=== PATIENT | female | born 1960 | race Caucasian/White ===

== ENCOUNTER → 2016-09-28 | Outpatient (CLI) | payer BC, MEDICARE ==
[~2016-09-28] MED LIST: ABILIFY PO; ACETAMINOPHEN PO; AMBIEN PO; AMITRYPTYLINE PO; ANEXSIA 5/325 M1 TA1 PO; ATENOLOL50 MG PO; BIRTH CONTROL PILL PO; BUTALB-APAP-CA1 EACH PO; CYMBALTA PO; DARVOCET-N 1001 TAB PO; DICYCLOMINE HCL20 MG PO; FIORINAL 50-321 EACH PO; FLEXERIL10 MG PO; GABAPENTIN300 M2 PO; HYDROCODON-ACE1 EAC7 PO; KETOPROFEN PO; LINZESS290 MCG PO; MEDROL PO; MOBIC PO; NORCO 5/325 TAB1 TAB PO; PHENERGAN25 MG PO; SAVELLA50 MG PO; ZOLOFT100 MG PO
[2016-10-01 10:53] LABS: CALCIUM (PTHINTACT) 9.4 mg/dL (8.6-10.4)
== END | disposition home or self-care (01) ==
LOC: CLAB 15:44
PROVIDERS: Otolaryngology
DX: E83.42 Hypomagnesemia (principal)
CPT/HCPCS: 36415; 82310; 82330; 83970

== ENCOUNTER → 2017-02-03 | Outpatient (CLI) | payer BC, MEDICARE ==
--- NOTE | ~2017-02-03 | NM19 ---
[facility] A Service [facility] RADIOLOGY TEXT RESULTS PATIENT: SURY ROSENTHAL LOCATION: [facility] : 64 UNIT #: [id number] AGE: [address]: Pascual Neri MD SEX: F ORDER DR: [id number] [place], [place] [address] [id number] O MR#: [id number] Acc #: [id number] NAME: SURY ROSENTHAL : 1960 SEX: F STUDY DATE/TIME: 02/03/2017 10:48 UNIT: [facility] ROOM: STUDY DESCRIPTION: NM Gastric Emptying Study Attending Physician: Pascual Neri M.D. Referring Physician: Pascual Neri M.D. Ordering Physician: Pascual Neri M.D. Primary Care Physician: Osiel Mclean M.D. MEDICAL IMAGING REPORT This report is preliminary unless electronic signature is present EXAM Gastric emptying scan, 02/03/2017 HISTORY Epigastric abdominal pain nausea vomiting for 5 months. History of gastric ulcer and gastric bypass surgery. TECHNIQUE The patient ingested 508 microcuries of Tc-99m tagged sulfur colloid in eggs. Images of the upper abdomen were obtained for 4 hours. FINDINGS After 1 hour, the stomach was 21% empty and after 2 hours, the stomach was 71% empty and after 4 hours, the stomach was 91% empty. Normal range is greater than 60% empty after 2 hours of imaging and greater than 90% empty after 4 hours of imaging. IMPRESSION Normal gastric emptying after 2 and 4 hours of imaging. Dictated by... Med Pittman M.D. THIS IS AN ELECTRONICALLY VERIFIED REPORT Med Pittman M.D. at 02/04/2017 10:18 AM JUSTIN/jamila TD: 02/03/2017 17:25 JOB #: [id number] MEDICAL IMAGING REPORT [facility] A Service of [facility] RADIOLOGY TEXT RESULTS PATIENT: SURY ROSENTHAL LOCATION: [facility] #: [id number] : 64 UNIT #: [id number] AGE: [address]: Pascual Neri MD SEX: F ORDER DR: Page 1 of 1 COPY
== END | disposition home or self-care (01) ==
LOC: CNUC 09:30
DX: R10.13 Epigastric pain (principal); R11.2 Nausea with vomiting, unspecified; Z98.84 Bariatric surgery status
CPT/HCPCS: 78264; A9541